=== PATIENT | male | born 1950 | race Caucasian/White ===

== ENCOUNTER 2017-12-09 12:20 | Emergency (ER) | payer OTHER ==
[~2017-12-09 12:20] MED LIST: HYDR-3533 PO; METH750T2 PO; PRED20 PO
[2017-12-09 12:47] VITALS: BP 147/66; PULSE 74; RESP 14; TEMP 99.2; O2SAT 97
--- NOTE | 2017-12-09 14:49 | RADRPT ---
EXAM DATE/TIME: 12/09/2017 14:21 [place] COMPARISON: No previous studies available for comparison. INDICATIONS : Cough, flu like symptoms MEDICAL HISTORY : None. SURGICAL HISTORY : None. ENCOUNTER: Initial ACUITY: 2 days PAIN SCORE: 0/10 LOCATION: Bilateral chest FINDINGS: Frontal and lateral views of the chest demonstrate normal-sized cardiac silhouette calcification of t he aorta. No effusion, consolidation, or pneumothorax is identified. There are degenerative changes o f the thoracic spine. CONCLUSION: No acute cardiopulmonary abnormalities identified. Varun Edmondson MD on December 09, 2017 at 14:45 Board Certified Radiologist. This report was verified electronically.
--- NOTE | 2017-12-09 14:52 | PD ---
HPI Chief Complaint: Cold / Flu Symptoms Time Seen by Provider: 14:13 Travel History International Travel<30 days: No Contact w/Intl Traveler<30days: No History of Present Illness HPI 67-year-old male presents to the emergency department with complaint of cough and body aches 5 days. Does not know if he has had a fever or not, but says he feels flushed at times. Cough is worse at night. Says when he lays down to go to bed he just cannot stop coughing. Denies nasal congestion, ear pain, sore throat. Reports headache. Denies chest pain, shortness of breath, wheezing, hemoptysis. Denies abdominal pain, vomiting. Has been drinking hot tea, using Vicks VapoRub, and taking aspirin for symptom management. No one else with similar symptoms. Symptoms are mild in severity. No known relieving factors. Aggravated when he goes to bed at night. No established primary care provider at this time. No known allergies. Denies significant past medical history. Has no other medical complaints. No other modifying factors or associated signs and symptoms. PFSH Past Medical History Arthritis: Yes Cancer: Yes (PROSTATE) Diminished Hearing: No Gastrointestinal Disorders: Yes Hiatal Hernia: Yes Musculoskeletal: Yes (BONE SPURS TO NECK AND BACK) Reproductive: Yes Tetanus Vaccination: < 5 Years Past Surgical History Appendectomy: Yes Eye Surgery: Yes (CATARACT SX) Genitourinary Surgery: Yes (PROSTATECTOMY) Tonsillectomy: Yes Other Surgery: No Social History Alcohol Use: No Tobacco Use: No Substance Use: No Allergies-Medications (Allergen,Severity, Reaction): Coded Allergies: No Known Allergies (Unverified Adverse Reaction, Unknown, 12/09/17) Reported Meds & Prescriptions Reported Meds & Active Scripts Active No Active Prescriptions or Reported Medications Review of Systems Except as stated in HPI: all other systems reviewed are Neg Physical Exam Narrative GENERAL: Well-nourished, well-developed male patient, in no acute distress; afebrile, nontoxic-appearing SKIN: Warm and dry. No rash. HEAD: Atraumatic. Normocephalic. EYES: Pupils equal and round. No scleral icterus. No injection or drainage. ENT: Mucosa pink and moist. No erythema or exudates. No uvular edema. No uvular , palatal, or tonsillar deviation. Airway patent. EARS: Bilateral pinnae and external canals appear within normal limits. Bilateral tympanic membranes without erythema, dullness or perforation. NECK: Trachea midline. No lymphadenopathy. CARDIOVASCULAR: Regular rate and rhythm. No murmur appreciated. RESPIRATORY: No accessory muscle use. Clear to auscultation; lung sounds decreased in left lower lung base when compared to the right. No retractions or tachypnea. GASTROINTESTINAL: Flat. MUSCULOSKELETAL: No obvious deformities. No clubbing. No cyanosis. No edema. NEUROLOGICAL: Awake and alert. Oriented 3. No obvious cranial nerve deficits. Motor grossly within normal limits. Normal speech. Moves all extremities. 5/5 strength to all extremities. PSYCHIATRIC: Appropriate mood and affect; insight and judgment normal. Data Data Last Documented VS Vital Signs Date Time Temp Pulse Resp B/P (MAP) Pulse Ox O2 Delivery O2 Flow Rate FiO2 12/09/17 12:47 99.2 74 14 147/66 (93) 97 Orders Orders Chest, Pa & Lat (12/09/17 14:13) [facility] Medical Decision Making Medical Screen Exam Complete: Yes Emergency Medical Condition: Yes Medical Record Reviewed: Yes Differential Diagnosis Bronchitis, influenza, pneumonia, upper respiratory infection, sinusitis, postnasal drip Narrative Course 67-year-old male with cough and cold symptoms 5 days. Patient is afebrile and nontoxic-appearing. Reports feeling flushed and cannot report a T-max. I do not feel it is necessary to test for influenza secondary to length of illness and if it is positive we will just continue to treat his symptoms. On examination the patient does have decreased lung sounds in the left lower lung compared to the right. Chest x-ray ordered to rule out acute findings. 1452: Chest x-ray conclude: No acute cardiopulmonary abnormalities identified. Discussed viral illness and symptom management with the patient. Patient and his is requesting antibiotics. Azithromycin, Tessalon Perles prescribed for home. Instructed patient to follow up with primary care provider. Patient verbalizes understanding and agreement with treatment plan. Patient is medically cleared and stable for discharge. Discussed reasons to return to the emergency department. Patient agrees with treatment plan. The patients vital signs are stable and the patient is stable for outpatient follow-up and treatment. Patient discharged home, stable and in no acute distress. Diagnosis Primary Impression: Upper respiratory infection Qualified Codes: J06.9 - Acute upper respiratory infection, unspecified Referrals: Primary Care Physician Patient Instructions: General Instructions, Upper Respiratory Infection (ED) Additional Instructions: Ibuprofen or Tylenol as directed and as needed to reduce fever; may alternate ibuprofen and Tylenol as needed every 3 hours to minimize fever [id number]-[id number] cold/flu medications as directed and as needed for symptom management Get plenty of sleep/rest Drink plenty of fluids to prevent dehydration; such as Gatorade, Powerade, Pedialyte Gordon diet to encourage nutrition such as crackers, fruit, applesauce, toast, soup etc. Use an air humidifier/turn off ceiling fans Follow-up with your primary care provider within 1 day Return immediately to the emergency department with worsening of symptoms Med/Other Pt SpecificInfo: Prescription(s) given Scripts Benzonatate (Tessalon Perles) 100 Mg Cap 100 MG PO TID Y for COUGH for 3 Days, CAP 0 Refills Prov: Juli Fletcher 12/09/17 Azithromycin (Azithromycin) 500 Mg Tab 500 MG PO DAILY for Infection, #5 TAB 0 Refills Prov: Juli Fletcher 12/09/17 Disposition: 01 DISCHARGE HOME Condition: Stable Juli Fletcher Dec 09, 2017 14:52
[2017-12-09] MEDS ORDERED: AZIT500T2 PO (15:26)
[2017-12-09] MEDS ORDERED: BENZ100 PO (15:26)
== END 2017-12-09 15:41 | disposition home or self-care (01) ==
LOC: NEPK 12:20
DX: J06.9 Acute upper respiratory infection, unspecified (principal); M19.90 Unspecified osteoarthritis, unspecified site; Z85.46 Personal history of malignant neoplasm of prostate
CPT/HCPCS: 71046; 99283

== ENCOUNTER → 2018-01-09 | Day surgery (SDC) | payer OTHER ==
[~2018-01-09] VITALS: Ht 170.2 cm; Wt 76.0 kg
[~2018-01-09] MED LIST changes: +AZIT500T2 PO; +BENZ100 PO; +BUPIVACAINE HCL PF 0.25% 30 ML VIAL ONE; +BUPIVACAINE HCL PF 0.5% 10 ML VIAL ONE; +BUPIVACAINE/EPINEPHRINE 0.5% PF 30 ML VIAL ONE; +CHLORHEXIDINE GLUCONATE 2 % 1 PACK (2 CLOTHS) TOPICAL PRN; +CHLORHEXIDINE GLUCONATE 4% SOLN 120 ML BTL TOPICAL SCH; -HYDR-3533 PO; +INSULIN HUMAN REGULAR 1,000 UNITS/10 ML VIAL SQ PRN; +LACTATED RINGER'S 1000 ML IV PRN; +LIDOCAINE HCL 2% 50 ML VIAL ONE; -METH750T2 PO; +METOPROLOL TARTRATE 25 MG TAB PO PRN; +POVIDONE IODINE 5% (ANTISEPSIS KIT) 4 APPLICATIONS EACH NARE PRN; -PRED20 PO; +PROPOFOL 200 MG/20 ML AMP ONE; +SODIUM CHLORID 0.9% 500 ML IV PRN
[2018-01-09 14:25] VITALS: BP 108/62; PULSE 59; RESP 16; TEMP 97.8; O2SAT 98
--- NOTE | 2018-01-10 08:14 | EKG ---
Date Performed: 01/09/2018 Time Performed: 11:44:08 PTAGE: 67 years EKG: SINUS BRADYCARDIA WITH SINUS ARRHYTHMIA BORDERLINE ECG PREVIOUS TRACING : 02/26/2013 18.06 DOCTOR: Ramy Rodriguez Interpretating Date/Time 01/10/2018 08:13:32
--- NOTE | 2018-01-10 22:20 | MP ---
cc: Ousmane Kraft MD, Marc E MD DATE OF OPERATION: 01/09/2018 PREOPERATIVE DIAGNOSIS: Right ring trigger finger. POSTOPERATIVE DIAGNOSIS: Right ring trigger finger PROCEDURE: Trigger finger release, right ring finger. DETAILS OF PROCEDURE: The patient was placed on an operating room stretcher in the supine position and the right hand was prepped and draped in usual sterile fashion. The patient was under sedation by Anesthesia. The area of the palm was infiltrated with a combination of 0.5% Marcaine and 2% lidocaine. A 1 cm incision was made between the proximal and distal crease and the wound was taken down through the subcutaneous tissues. There was no significant bleeding occurring and the procedure itself was done under tourniquet. The flexor tendon sheath was identified and then pierced and longitudinally released with tenotomy scissors. Care was taken to avoid any excessive stretching or injury to the neurovascular bundles on each side of the flexor tendon. The tendon was then brought through to the exterior through the wound and found to be completely free. No additional triggering was encountered. The wound was then closed with several interrupted sutures of 4-0 nylon. A bulky hand dressing was applied following which, the tourniquet was deflated and examination of the fingers revealed adequate return of circulation. Sponge count, needle counts and instrument counts were reportedly correct x2. Estimated blood loss was nil. The patient was transferred in satisfactory condition to the recovery room. Ousmane Kraft MD [facility]/ , 12:46 PM , 10:19 PM
== END | disposition home or self-care (01) ==
LOC: PHSDC 09:22
PROVIDERS: ATTEND Orthopaedic Surgery
DX: M65.341 Trigger finger, right ring finger (principal); R94.31 Abnormal electrocardiogram [ECG] [EKG]
CPT/HCPCS: 01810; 26055; 93005; J3010; J7120